=== PATIENT | female | born 1950 ===

== ENCOUNTER 2017-11-19 07:30 | Inpatient (IN) | payer OTHER ==
[~2017-11-19] VITALS: Ht 167.6 cm; Wt 79.4 kg
[~2017-11-19 07:30] MED LIST: PERCOCET 5/3251 TAB PO
[2017-11-19] MEDS ORDERED: GABAPENTIN400 MG PO (11:00)
[2017-11-19] MEDS ORDERED: COZAAR50 MG PO (11:00)
[2017-11-19] MEDS ORDERED: WELLBUTRIN SR150 MG PO (11:00)
[2017-11-19] MEDS ORDERED: ZOCOR40 MG PO (11:01)
[2017-11-19] MEDS ORDERED: SPECIAL C 5001 EACH PO (11:02)
[2017-11-19] MEDS ORDERED: EUCERIN DAILY400 ML (11:03)
[2017-11-19] MEDS ORDERED: B-100 COMPLEX100 MG PO (11:03)
[2017-11-22] MEDS ORDERED: DOCUSATE SODIU100 MG PO (12:51)
[2017-11-22] MEDS ORDERED: PERCOCET 5-3251 EACH PO (12:52)
[2017-11-22] MEDS ORDERED: XANAX2 MG PO (12:52)
== END 2017-11-23 18:13 | disposition home or self-care (01) | DRG 472 ==
LOC: PED 11-22 04:30 → O/R 11-22 04:30 → SURH 11-22 07:00 → PED 11-22 10:48
PROVIDERS: Orthopaedic Surgery Orthopaedic Surgery of the Spine
PROC: 0RT30ZZ Resection of Cervical Vertebral Disc, Open Approach (ICD-10-PCS; 2017-11-22)
PROC: 0RG20A0 Fusion of 2 or more Cervical Vertebral Joints with Interbody Fusion Device, Anterior Approach, Anterior Column, Open Approach (ICD-10-PCS; principal; 2017-11-22 07:00)
DX: M50.01 Cervical disc disorder with myelopathy, high cervical region (principal); M47.12 Other spondylosis with myelopathy, cervical region; I10 Essential (primary) hypertension; M50.023 Cervical disc disorder at C6-C7 level with myelopathy